=== PATIENT | female | born 1930 | race Caucasian/White ===

== ENCOUNTER 2018-08-04 09:19 | Day surgery (SDC) | payer OTHER ==
[2018-08-04] MEDS: BETADINE OPTH PREP OP PRN ×2 (11:10→11:29)
[2018-08-04] MEDS: TETRACAINE 0.5% UNIT-DOSE OP PRN ×2 (11:10→11:29)
[2018-08-04] MEDS: CYCLOGYL 2% OPTH OP PRN ×3 (11:11→11:21)
[2018-08-04] MEDS ORDERED: LIDOCAINE 1%/PHENYLEPHRINE 1.5% BSS (SURGERY) INTRAOCULA ONE (11:19)
[2018-08-04] MEDS ORDERED: BSS WITH EPINEPHRINE OP ONE (11:19)
[2018-08-04] MEDS ORDERED: ZOFRAN 4 MG/2 ML IVP ONE (11:19)
[2018-08-04] MEDS ORDERED: LIDOCAINE 1% 20 ML MDV ID STA (11:19)
[2018-08-04] MEDS ORDERED: BRIMONIDINE TARTRATE 0.2% OPTH SOL OP PRN (11:19)
[2018-08-04] MEDS ORDERED: DEX-MOXI-KETOR OPTH INJ 1/0.5/0.4 MG/ML IO ONE (11:19)
[2018-08-04 11:22] VITALS: TEMP 97.4
[2018-08-04] MEDS ORDERED: VERSED ONE (11:38)
[2018-08-04] MEDS ORDERED: ZOFRAN 4 MG/2 ML ONE (11:38)
[2018-08-04 14:56] VITALS: BP 135/52
== END 2018-08-04 12:35 | disposition home or self-care (01) ==
LOC: SURG 09:19
PROVIDERS: ATTEND Ophthalmology
DX: H25.812 Combined forms of age-related cataract, left eye (principal)